=== PATIENT | female | born 1965 | race Hispanic/Latino ===

== ENCOUNTER 2018-02-24 19:56 | Emergency (ER) | payer SELFPAY ==
[~2018-02-24] VITALS: Ht 152.4 cm; Wt 65.8 kg
== END 2018-02-24 20:21 | disposition home or self-care (01) ==
LOC: ER 19:56
DX: T43.215A Adverse effect of selective serotonin and norepinephrine reuptake inhibitors, initial encounter (principal); T43.225A Adverse effect of selective serotonin reuptake inhibitors, initial encounter; Y92.008 Other place in unspecified non-institutional (private) residence as the place of occurrence of the external cause; I10 Essential (primary) hypertension; F32.9 Major depressive disorder, single episode, unspecified
CPT/HCPCS: 99282